=== PATIENT | male | born 1965 | race Caucasian/White ===

== ENCOUNTER 2019-07-13 14:50 | Emergency (ER) | payer BC, SELFPAY ==
[2019-07-13 14:52] VITALS: BP 170/102; PULSE 103; RESP 16; TEMP 37.2; O2SAT 97; BMI 30.4
--- NOTE | 2019-07-13 15:22 | ED.VIS.GEN ---
History of Present Illness Chief Complaint: Headache Informant: Patient Onset: Days - 3 Timing: Intermittent Narrative: Patient is a 54-year-old male with with no significant past medical history presenting from home for 4 days of flulike symptoms. Patient states that he started taking a new [id number] supplement, Nugenex jw testosterone on Thursday. After that he knows that he is having increased frequency of urination and increased voiding. Today he also developed a headache and felt that he was peeing blood. He states his urine looked either brown or red. He does have some associated nausea but no vomiting. He feels that his stomach is upset his symptoms are worse when he urinates. He has had normal bowel movements. He denies any chest pain, shortness of breath or difficulty breathing. He denies any fever or chills. Patient comments that his son was recently sick with stomach flu symptoms and headache from Thursday through Thursday, last week. Patient does note that he took flu medicine once that caused him to pee blood in the past. Has not happened since. He did recently start working out again. He states he did not do anything overly strenuous and was working on his upper arms and chest. Patient did notice that there seems to be a puffy area in his left groin/upper thigh area. Is not tender but he is noticed over the past day or 2. Patient denies any other complaints at this time. Prior similar symptoms: Yes Past Medical History - Allergies and Home Meds Allergies/Adverse Reactions: Allergies No Known Allergies Allergy (Verified 07/13/19 14:52) Primary Care Physician: Gonsalo Gonsalez MD [Primary Care Provider] - Past Medical History: None Surgical History: no surgical history Review of Systems All systems negative except as indicated General: Reports: Chills, Malaise, Sweats Gastrointestinal: Reports: Abdominal pain, Nausea. Denies: Vomiting, Diarrhea, Constipation Genitourinary: Reports: Hematuria, Frequency Musculoskeletal: Reports: Myalgias, Swelling - left groin Endocrine: Reports: Polyuria, Polydipsia Physical Exam Vital Signs/Narrative: Vital Signs Temp Pulse Resp BP Pulse Ox 07/13/19 14:52 99 F 103 H 16 170/102 H 97 Inital Vital Signs reviewed: Yes General: Well nourished, Well developed, No Acute Distress Head: Normocephalic, Atraumatic Eyes: Perrl, EOMI ENT: Moist mucous membranes, No rhinorrhea Neck: Supple, Nontender Cardiovascular: Regular rate, Regular rhythm, No murmurs Respiratory: No distress, CTA bilaterally, Chest nontender Abdomen: Soft, Nontender, Nondistended, Normal bowel sounds Back: Nontender, Normal Inspection. Negative for: CVA tenderness Extremities: Nontender, No edema, Edema - mild tissue swelling left proximal thigh/groin . Negative for: Tenderness Skin: Normal color, No rash Neurological: Alert, Oriented x3, Cranial nerves II-XII grossly intact, Normal Strength, Normal Sensation Psychological: Normal affect, Normal Mood Diagnostic/Tx/Re-eval Laboratory Data 07/13/19 07/13/19 07/13/19 15:30 15:30 15:30 WBC 12.1 H RBC 4.80 Hgb 14.3 Hct 40.6 MCV 84.6 MCH 29.8 MCHC 35.2 RDW Std Deviation 39.3 RDW Coeff of Tonya 12.8 Plt Count 157 MPV 11.5 Immature Gran % (Auto) 0.300 Neut % (Auto) 78.3 H Lymph % (Auto) 13.8 L [place] % (Auto) 6.6 Eos % (Auto) 0.7 Baso % (Auto) 0.3 Absolute Neuts (auto) 9.5 H Absolute Lymphs (auto) 1.67 Nucleated RBC % 0 Sodium 138 Potassium 3.7 Chloride 104 Carbon Dioxide 30.0 Anion Gap 4 L BUN 18 Creatinine 1.55 H Estim Creat Clear Calc 63.34 Est GFR (MDRD) Af Amer 60 Est GFR (MDRD) Non-Af 50 L BUN/Creatinine Ratio 11.6 Glucose 100 Calcium 8.8 Total Bilirubin 1.00 Direct Bilirubin 0.19 AST 23 ALT 38 Alkaline Phosphatase 104 Total Creatine Kinase 180 Total Protein 7.9 Albumin 3.8 Globulin 4.1 Lipase 79 Urine Color Yellow Urine Clarity Clear Urine pH 7.0 Ur Specific Bliss 1.005 Urine Protein 15 H Urine Glucose (UA) Normal Urine Ketones Negative Urine Occult Blood 250 H Urine Nitrite Negative Urine Bilirubin Negative Urine Urobilinogen Normal Ur Leukocyte Esterase 500 H Urine RBC 0-5 SEEN Urine WBC 5-10 SEEN Ur Squamous Epith Cells 0 SEEN Urine Bacteria RARE Urine Mucus 0 SEEN - Medical Decision Making Evaluated for hematuria. He is also having myalgias. His presentation is more concerning for rhabdomyolysis. His total CK is normal however patient does have evidence of myoglobin in his urine. Patient is treated with 2 L of IV fluids. He does take a home dose of Tylenol while in the emergency room. Discussed with poison control ingredients for his supplement and they do not feel that this is causing his symptoms. Patient's creatinine is mildly elevated however I do not know what his baseline is. Patient is counseled on these findings and then mentions that he does take creatine supplements as well. This constellation of working out and supplements may be contributing to his presentation. Patient is encouraged to stop taking creatine and follow-up with his primary care provider for repeat BMP in a week. Patient is have a small amount of a symptom medic soft tissue swelling of his left thigh. His compartments are soft and patient is encouraged to rest the area and keep an eye on it. Patient is counseled on signs and symptoms requiring return to the emergency room. Patient verbalizes agreement and understand this plan. Patient discharged home in stable and improved condition. ED Disposition - Plan for ED Patient: Disposition: Home or Assisted Living Diagnosis: Exercise myoglobinuria, Elevated serum creatinine Instructions: Rhabdomyolysis Referrals: Gonsalo Gonsalez MD [Primary Care Provider] - Additional Instructions: Follow-up with your primary care doctor in a week for recheck of your kidney function. Drink plenty of water. Avoid using further supplements for the time being. Do not push yourself during workouts. Return to emergency room if you have worsening or different symptoms.
[2019-07-13] MEDS: 0.9% Normal Saline 1,000 ML 1000 ML IV (15:36)
[2019-07-13 15:37] LABS: Mucous, Urine 0 SEEN /hpf (<or=2+); Squamous Epithelial Cells - UA 0 SEEN /hpf (0-5)
[2019-07-13 15:43] LABS: Absolute Lymphocyte Count 1.67 X10^3/uL (0.83-4.51); Absolute Neutrophil Count 9.5 X10^3/uL (2.0-7.7); Basophil# 0.04 X10^3/uL; Basophil% 0.3 % (0-1); Eosinophil# 0.08 X10^3/uL; Eosinophils% 0.7 % (0-5); Hematocrit 40.6 % (40-54); Hemoglobin 14.3 g/dL (13.0-16.5); Lymphocyte # 1.67 X10^3/ul (4.0); Lymphocyte % 13.8 % (19-41); Mean Corp Hgb Conc 35.2 g/dL (32-36); Mean Corpuscular Hgb 29.8 pg (27.0-32.0); Mean Corpuscular Volume 84.6 fL (80-94); Mean Platelet Vol. 11.5 fl (6.2-12.0); Monocyte% 6.6 % (0-10); NRBC Flagged by Analyzer 0 % (0-5); Neutrophil # 9.45 X10^3/uL (2.7-7.7); Neutrophil % 78.3 % (47-70); Platelet Count 157 K/mm3 (150-450); RBC Distribution Width CV 12.8 % (11.6-14.6); RBC Distribution Width SD 39.3 fl (35.1-43.9); White Blood Count 12.1 K/mm3 (4.4-11.0)
[2019-07-13 15:51] LABS: Color, Urine Yellow (Yellow); Glucose, Dipstick Normal (Normal); Ketone-Dipstick Negative (Negative); Leukocyte Esterase-Dipstick 500 /ul (Negative); Nitrite-Dipstick Negative (Negative); Occult Blood-Urine 250 /ul (Negative); Protein-Dipstick 15 mg/dl (Negative); Specific Gravity, Urine 1.005 (1.002-1.030); Urine Bilirubin Dipstick Negative (Negative); Urine Clarity Clear (Clear); Urine Urobilinogen Normal (Normal)
[2019-07-13 16:03] LABS: AST(SGOT) 23 U/L (15-37); Alanine Aminotransfer ALT/SGPT 38 U/L (16-61); Albumin, Serum 3.8 g/dL (3.2-5.0); Alkaline Phosphatase 104 U/L (45-117); Anion Gap 4 (5-15); BUN 18 mg/dL (7-18); BUN/Creat Ratio 11.6 RATIO (10-20); Bilirubin, Direct 0.19 mg/dL (0.00-0.30); CPK Total, Creatine Kinase 180 U/L (39-308); Calcium,Total 8.8 mg/dL (8.5-10.1); Chloride 104 mmol/L (98-107); Creatinine, Serum 1.55 mg/dL (0.70-1.30); EST Glomerular Filtration Rate 50 mL/min (>60); Est Glom Filt Rate - Afr Amer 60 mL/min (>60); Estimated Creatinine Clearance 63.34 ml/min; Globulin 4.1 g/dL (2.2-4.2); Glucose 100 mg/dL (74-106); Lipase 79 U/L (73-393); Potassium 3.7 mmol/L (3.5-5.1); Protein, Total 7.9 g/dL (6.4-8.2); Sodium Level 138 mmol/L (136-145)
[2019-07-13 16:10] LABS: Bacteria RARE /hpf (None Seen); Red Blood Cells-Urine 0-5 SEEN /hpf (0-5); White Blood Cells 5-10 SEEN /hpf (0-5)
[2019-07-13] MEDS: 0.9% Normal Saline 1,000 ML 999 ML IV (16:35)
[2019-07-13 17:35] VITALS: BP 158/98
[2019-07-13 17:42] VITALS: BP 158/98
== END 2019-07-13 17:43 | disposition home or self-care (01) ==
PROVIDERS: Emergency Provider Emergency Medicine; Family Provider Family Medicine; PCP Family Medicine
DX: R82.1 Myoglobinuria (principal); R79.89 Other specified abnormal findings of blood chemistry; R35.0 Frequency of micturition; R51 Headache; R11.0 Nausea; R68.83 Chills (without fever); R53.81 Other malaise; R10.9 Unspecified abdominal pain; R31.9 Hematuria, unspecified; R22.32 Localized swelling, mass and lump, left upper limb
CPT/HCPCS: 80048; 80076; 81001; 82550; 83690; 85025; 87086; 87088; 87186; 96360; 96361; 99283; J7030; A4216

== ENCOUNTER → 2024-06-22 | Outpatient (CLI) | payer BC, SELFPAY ==
--- NOTE | 2024-06-22 14:04 | RAD_ITS ---
STUDY: X-RAY - CERVICAL SPINE REASON FOR EXAM: Male, 58 years old. Neck pain. TECHNIQUE: 3 view(s) of the cervical spine were obtained. COMPARISON: None FINDINGS: Normal anterior atlantoaxial articulation. Normal odontoid process. Slight reversal of the normal lordotic curve, likely positional. Diffuse moderate uncovertebral and facet sclerosis. Intervertebral disc space narrowing at C4-5, C5-6 and C6-7. Osteophytes most marked at C5-6 and C6-7. Normal soft tissues. RAD/Cerv Spine 2 or 3 Views IMPRESSION: Moderate lower cervical spondylosis with no acute finding. Electronically Signed: Christiano Bell MD at 14:44 EDT ,
== END | disposition home or self-care (01) ==
PROVIDERS: PCP Family Medicine; Referring Provider Family Medicine; Visit Provider Family Medicine
DX: M54.2 Cervicalgia (principal)
CPT/HCPCS: 72040

== ENCOUNTER → 2024-06-24 | Outpatient (CLI) | payer BC, SELFPAY ==
--- NOTE | 2024-06-24 16:24 | US_ITS ---
STUDY: ULTRASOUND - URINARY BLADDER REASON FOR EXAM: Male, 58 years old. Urinary retensioned TECHNIQUE: Ultrasound evaluation of the urinary bladder was performed with real-time and static trevizo-scale imaging. COMPARISON: None. FINDINGS: There is no right UVJ calculus. There is a visualized right ureteral jet. There is no left UVJ calculus. There is a visualized left ureteral jet. The distended volume of the urinary bladder is 389.8 ml. The empty volume of the urinary bladder is 120.01 ml. The bladder wall is within normal limits. The bladder wall measures . There is no demonstrated bladder wall mass lesion. There are no demonstrated bladder calculi. The prostate measures 4.1 sono by 4.6 x 3.4 cm. US/Post Void Residual Bladder IMPRESSION: Post void residual. Electronically Signed: Los Yancey MD at 13:36 EDT ,
== END | disposition home or self-care (01) ==
LOC: US 16:23
PROVIDERS: PCP Family Medicine; Referring Provider Family Medicine; Visit Provider Family Medicine
DX: R33.9 Retention of urine, unspecified (principal)
CPT/HCPCS: 51798

== ENCOUNTER → 2024-07-28 | Outpatient (CLI) | payer BC, SELFPAY ==
[2024-07-28 09:27] LABS: Syphilis Antibodies Non-reactive
[2024-07-29 07:08] LABS: HSV 2 IgG < 0.91 index (0.00-0.90)
== END | disposition home or self-care (01) ==
PROVIDERS: PCP Family Medicine; Referring Provider Family Medicine; Visit Provider Family Medicine
DX: N48.1 Balanitis (principal)
CPT/HCPCS: 36415; 86695; 86696; 86780

== ENCOUNTER → 2024-12-12 | Outpatient (CLI) | payer BC, SELFPAY ==
--- NOTE | 2024-12-12 14:57 | VDLE_ITS ---
Reason For Study Reason For Study: Pain RLE RIGHT LEFT CFV is compressible, spontaneous, phasic, competent CFV is compressible, spontaneous, phasic, competent, and demonstrates normal augmentation. and demonstrates normal augmentation. FV is compressible, spontaneous, phasic, competent and demonstrates normal augmentation. POP V is compressible, spontaneous, phasic, competent and demonstrates normal augmentation. T/P Trunk is compressible. PTV is compressible. RT PerV is compressible. Heterogeneous, non vascular structure noted Rt Pop Fossa measuring 1.26cm x 3.42cm. SFJ is INCOMPETENT and measures 0.66cm x 0.68 cm. GSV proximal thigh measures 0.99cm x 1.08 cm. GSV at knee measures 0.69cm x 0.70 cm. GSV INCOMPETENT throughout for greater than 0.5 seconds. ASV proximal calf is INCOMPETENT for greater than 0.5 seconds and measures 0.49cm x 0.50 cm. SSV mid calf is competent and measures 0.29cm x 0.27 cm. Procedure This is a venous duplex using B-mode, color flow and spectral Doppler. Exam performed in department. Patient was scanned in reverse Trendelenburg position during reflux assessment. A preliminary report was called and/or faxed to Rebecca FAUST. VL/Venous Duplex US, Unilateral Interpretation Summary Deep veins of the right lower extremity are patent and compressible segmentally . There is no evidence of right lower extremity deep vein thrombosis. The right great saphenous vein appears patent a nd compressible segmentally. Positive for reflux in the right saphenofemoral junction, great saphenous vein throughout, accessory saphenous vein in the calf. Heterogeneous, non vascular structure noted right popliteal fossa measuring 1.2 6cm x 3.42cm. Ordering Physician: Rebecca Avila Referring Physician: Bart Rodriguez Performed By: Jewell Landa, [place], RVT
== END | disposition home or self-care (01) ==
PROVIDERS: PCP Family Medicine; Referring Provider Physician Assistant; Visit Provider Physician Assistant
DX: I83.891 Varicose veins of right lower extremity with other complications (principal)
CPT/HCPCS: 93971

== ENCOUNTER → 2025-03-17 | Outpatient (CLI) | payer BC, SELFPAY ==
[2025-03-17 12:31] LABS: Absolute Neutrophil Count 6.7 X10^3/uL (2.0-7.7); Basophil# 0.01 X10^3/uL; Basophil% 0.1 % (0-1); Eosinophil# 0.01 X10^3/uL; Eosinophils% 0.1 % (0-5); Hemoglobin 14.2 g/dL (13.0-16.5); Lymphocyte % 15.3 % (19-41); Mean Corp Hgb Conc 34.6 g/dL (32-36); Mean Corpuscular Volume 86.5 fL (80-94); Mean Platelet Vol. 12.1 fl (6.2-12.0); Monocyte# 0.39 X10^3/uL; Monocyte% 4.6 % (0-10); NRBC Flagged by Analyzer 0 % (0-5); Neutrophil # 6.73 X10^3/uL (2.7-7.7); Neutrophil % 79.3 % (47-70); Platelet Count 245 K/mm3 (150-450); RBC Distribution Width CV 12.8 % (11.6-14.6); RBC Distribution Width SD 40.6 fl (35.1-43.9); Red Blood Count 4.74 M/mm3 (4.6-6.2); White Blood Count 8.5 K/mm3 (4.4-11.0)
[2025-03-17 13:01] LABS: ALB/GLOB Ratio 1.3 RATIO (0.9-2.4); AST(SGOT) 17 U/L (<=37); Alanine Aminotransfer ALT/SGPT 18 U/L (<=46); Albumin, Serum 4.3 g/dL (3.5-5.0); Alkaline Phosphatase 87 U/L (40-129); Anion Gap 11 (5-15); BUN 23 mg/dL (4-19); BUN/Creat Ratio 21.3 RATIO (10-20); Calcium,Total 9.5 mg/dL (7.6-11.0); Carbon Dioxide 22.7 mmol/L (21.0-32.0); Chloride 104 mmol/L (98-108); Cholesterol 242 mg/dL (<=200); EST Glomerular Filtration Rate 77 (>60); Globulin 3.3 g/dL (2.2-4.2); Glucose 124 mg/dL (70-99); High Density Lipoprotein 46 mg/dL; Low Density Lipoprotein Calc. 169 mg/dL; PSA,Total- Diagnostic 4.29 ng/mL (0.00-4.00); Potassium 4.3 mmol/L (3.3-5.1); Protein, Total 7.7 g/dL (5.9-8.4); Sodium Level 137 mmol/L (133-145); Total Bilirubin 0.78 mg/dL (0.00-1.30); Triglycerides 136 mg/dL; Very Low Density Lipoprotein 27 mg/dL (5-40); cholesterol:hdl ratio screen 5.23
== END | disposition home or self-care (01) ==
LOC: BIMLAB 08:34
PROVIDERS: PCP Family Medicine; Referring Provider Physician Assistant; Visit Provider Physician Assistant
DX: Z00.00 Encounter for general adult medical examination without abnormal findings (principal); N28.9 Disorder of kidney and ureter, unspecified; E78.5 Hyperlipidemia, unspecified; R33.9 Retention of urine, unspecified
CPT/HCPCS: 36415; 80053; 80061; 84153; 85025